=== PATIENT | female | born 1965 | race Caucasian/White ===

== ENCOUNTER 2016-08-09 15:33 | Emergency (ER) | payer MEDICARE, MEDICAID ==
[2016-08-09] MEDS ORDERED: Ondansetron 4 MG/2 ML SDV IVPUSH PRN (15:38)
[2016-08-09] MEDS ORDERED: Sodium Chloride 0.9% 10 ML Syringe FLUSH PRN ×2 (15:38→17:32)
--- NOTE | 2016-08-09 15:44 | EDM.PDOC ---
ED HPI GENERAL MEDICAL PROBLEM - General Chief Complaint: Chest Pain Stated Complaint: [facility] Time Seen by Provider: 08/09/16 15:37 Source of Information: Reports: Patient, EMS, Police, RN Notes Reviewed History Limitations: Reports: No Limitations - History of Present Illness INITIAL COMMENTS - FREE TEXT/NARRATIVE: 50-year-old female presents emergency department day complaint of chest pain, she has been brought in by EMS services. She is currently incarcerated stated she started having some chest pressure last night and it progressively has gotten worse throughout the day she is nauseated she feels short of breath she is diaphoretic. Only significant past medical history is of drug use, does have family history of heart disease denies any diabetes or hypertension or heart disease herself Chest Pain Score (Numeric/FACES): 5 - Related Data Allergies Allergy/AdvReac Type Severity Reaction Status Date / Time bee venom protein (honey bee) Allergy Anaphylactic Verified 08/09/16 15:41 Shock morphine Allergy Facial Verified 08/09/16 15:41 Swelling Home Meds: Home Meds NK [No Known Home Meds] 08/09/16 [History] Past Medical History - Past Health History Medical/Surgical History: Denies Medical/Surgical History Social & Family History - Tobacco Use Smoking Status *Q: Current Some Day Smoker ED ROS GENERAL - Review of Systems Review Of Systems: See Below Constitutional: Reports: Diaphoresis HEENT: Reports: No Symptoms Respiratory: Reports: Shortness of Breath. Denies: Cough, Sputum Cardiovascular: Reports: Chest Pain, Dyspnea on Exertion, Lightheadedness GI/Abdominal: Reports: Mucous in Stool, Nausea. Denies: Abdominal Pain, Vomiting Musculoskeletal: Reports: No Symptoms Skin: Reports: No Symptoms Neurological: Reports: No Symptoms Psychiatric: Reports: No Symptoms ED EXAM, GENERAL - Physical Exam Exam: See Below Exam Limited By: No Limitations General Appearance: Alert, Mild Distress Eye Exam: Bilateral Eye: Normal Inspection Head: Atraumatic, Normocephalic Neck: Normal Inspection, Supple, Non-Tender, Full Range of Motion Respiratory/Chest: No Respiratory Distress, Lungs Clear, Normal Breath Sounds, No Accessory Muscle Use, Chest Non-Tender Cardiovascular: Regular Rate, Rhythm, No Murmur GI/Abdominal: Soft, Non-Tender Extremities: No Pedal Edema Skin Exam: Warm, Dry Course - Vital Signs Last Recorded V/S: Last Vital Signs Temp 98.8 F 06/26/17 15:38 Pulse 62 08/09/16 18:20 Resp 16 08/09/16 15:38 BP 134/82 08/09/16 18:20 Pulse Ox 98 08/09/16 18:20 - Orders/Labs/Meds Orders: Active Orders 24 hr Category Date Time Status Cardiac Monitoring [RC] .As Directed Care 08/09/16 15:38 Active EKG Documentation Completion [RC] ASDIRECTED Care 08/09/16 15:40 Active Chest 1V Frontal [CR] Stat Exams 08/09/16 15:39 Taken Chest w Cont [CT] Stat Exams 08/09/16 17:14 Taken Nitroglycerin/D5W [Nitroglycerin 25 MG/D5W 250 ML] Med 08/09/16 16:00 Active 25 mg in 250 ml IV TITRATE Ondansetron [Zofran] Med 08/09/16 15:38 Active 4 mg IVPUSH ONETIME PRN Sodium Chloride 0.9% [Saline Flush] Med 08/09/16 15:38 Active 10 ml FLUSH ASDIRECTED PRN Sodium Chloride 0.9% [Saline Flush] Med 08/09/16 17:32 Active 10 ml FLUSH ONETIME PRN ED Antiemetic Medication Reflex [OM.PC] Stat Oth 08/09/16 15:38 Ordered Saline Lock Insert [OM.PC] Stat Oth 08/09/16 15:38 Ordered EKG 12 Lead [EK] Stat Ther 08/09/16 15:39 Ordered Medication Orders Nitroglycerin/Dextrose (Nitroglycerin 25 Mg/D5w 250 Ml) 25 mg in 250 mls @ 6 mls/hr IV TITRATE KARMEN; 10 MCG/MIN PRN Reason: Protocol Last Titration: 08/09/16 17:23 Dose: 0 mcg/min, 0 mls/hr Titration: 08/09/16 17:05 Dose: 10 mcg/min, 6 mls/hr Titration: 08/09/16 16:54 Dose: 20 mcg/min, 12 mls/hr Admin: 08/09/16 16:15 Dose: 30 mcg/min, 18 mls/hr Ondansetron HCl (Zofran) 4 mg IVPUSH ONETIME PRN PRN Reason: Nausea/Vomiting Last Admin: 08/09/16 16:04 Dose: 4 mg Sodium Chloride (Saline Flush) 10 ml FLUSH ASDIRECTED PRN PRN Reason: Keep Vein Open Last Admin: 08/09/16 16:12 Dose: 10 ml Sodium Chloride (Saline Flush) 10 ml FLUSH ONETIME PRN PRN Reason: PER RADIOLOGY PROTOCOL Last Admin: 08/09/16 17:44 Dose: 10 ml Labs: Laboratory Tests 08/09/16 08/09/16 08/09/16 Range/Units 15:45 15:45 15:45 WBC 9.9 (4.5-11.0) K/uL RBC 4.57 (3.30-5.50) M/uL Hgb 13.8 (12.0-15.0) g/dL Hct 42.2 (36.0-48.0) % MCV 92 (80-98) fL MCH 30 (27-31) pg MCHC 33 (32-36) % Plt Count 274 (150-400) K/uL Neut % (Auto) 60 (36-66) % Lymph % (Auto) 28 (24-44) % Hudson % (Auto) 10 H (2-6) % Eos % (Auto) 2 (2-4) % Baso % (Auto) 1 (0-1) % D-Dimer, Quantitative < 100 (0.0-400.0) ng/mL Sodium 132 L (140-148) mmol/L Potassium 3.7 (3.6-5.2) mmol/L Chloride 98 L (100-108) mmol/L Carbon Dioxide 33 H (21-32) mmol/L Anion Gap 4.7 L (5.0-14.0) mmol/L BUN 15 (7-18) mg/dL Creatinine 0.8 (0.6-1.0) mg/dL Est Cr Clr Drug Dosing 71.43 mL/min Estimated GFR (MDRD) > 60 (>60) Glucose 93 (74-106) mg/dL Calcium 8.8 (8.5-10.1) mg/dL Total Bilirubin 0.3 (0.2-1.0) mg/dL AST 9 L (15-37) U/L ALT 15 (12-78) U/L Alkaline Phosphatase 59 (46-116) U/L Troponin I < 0.017 (0.000-0.056) ng/mL Total Protein 6.7 (6.4-8.2) g/dL Albumin 3.4 (3.4-5.0) g/dL Globulin 3.3 (2.3-3.5) g/dL Albumin/Globulin Ratio 1.0 L (1.2-2.2) Lipase 242 (73-393) U/L Urine Color Urine Appearance Urine pH (4.5-8.0) Ur Specific Baldwin (1.008-1.030) Urine Protein (NEGATIVE) mg/dL Urine Glucose (UA) (NEGATIVE) mg/dL Urine Ketones (NEGATIVE) mg/dL Urine Occult Blood (NEGATIVE) Urine Nitrite (NEGATIVE) Urine Bilirubin (NEGATIVE) Urine Urobilinogen (NORMAL) mg/dL Ur Leukocyte Esterase (NEGATIVE) Urine RBC (0-5) Urine WBC (0-5) Ur Epithelial Cells Amorphous Sediment Urine Bacteria Urine Mucus Urine Opiates Screen (NEGATIVE) Ur Oxycodone Screen (NEGATIVE) Urine Methadone Screen (NEGATIVE) Ur Propoxyphene Screen (NEGATIVE) Ur Barbiturates Screen (NEGATIVE) Ur Tricyclics Screen (NEGATIVE) Ur Phencyclidine Scrn (NEGATIVE) Ur Amphetamine Screen (NEGATIVE) U Methamphetamines Scrn (NEGATIVE) Urine MDMA Screen (NEGATIVE) U Benzodiazepines Scrn (NEGATIVE) U Cocaine Metab Screen (NEGATIVE) U Marijuana (THC) Screen (NEGATIVE) 08/09/16 08/09/16 Range/Units 17:07 17:07 WBC (4.5-11.0) K/uL RBC (3.30-5.50) M/uL Hgb (12.0-15.0) g/dL Hct (36.0-48.0) % MCV (80-98) fL MCH (27-31) pg MCHC (32-36) % Plt Count (150-400) K/uL Neut % (Auto) (36-66) % Lymph % (Auto) (24-44) % Hudson % (Auto) (2-6) % Eos % (Auto) (2-4) % Baso % (Auto) (0-1) % D-Dimer, Quantitative (0.0-400.0) ng/mL Sodium (140-148) mmol/L Potassium (3.6-5.2) mmol/L Chloride (100-108) mmol/L Carbon Dioxide (21-32) mmol/L Anion Gap (5.0-14.0) mmol/L BUN (7-18) mg/dL Creatinine (0.6-1.0) mg/dL Est Cr Clr Drug Dosing mL/min Estimated GFR (MDRD) (>60) Glucose (74-106) mg/dL Calcium (8.5-10.1) mg/dL Total Bilirubin (0.2-1.0) mg/dL AST (15-37) U/L ALT (12-78) U/L Alkaline Phosphatase (46-116) U/L Troponin I (0.000-0.056) ng/mL Total Protein (6.4-8.2) g/dL Albumin (3.4-5.0) g/dL Globulin (2.3-3.5) g/dL Albumin/Globulin Ratio (1.2-2.2) Lipase (73-393) U/L Urine Color Yellow Urine Appearance Cloudy Urine pH 8.0 (4.5-8.0) Ur Specific Baldwin 1.015 (1.008-1.030) Urine Protein Negative (NEGATIVE) mg/dL Urine Glucose (UA) Normal (NEGATIVE) mg/dL Urine Ketones Negative (NEGATIVE) mg/dL Urine Occult Blood Negative (NEGATIVE) Urine Nitrite Positive H (NEGATIVE) Urine Bilirubin Negative (NEGATIVE) Urine Urobilinogen Normal (NORMAL) mg/dL Ur Leukocyte Esterase Negative (NEGATIVE) Urine RBC 0-5 (0-5) Urine WBC 0-5 (0-5) Ur Epithelial Cells Not seen Amorphous Sediment Rare Urine Bacteria Moderate Urine Mucus Not seen Urine Opiates Screen Negative (NEGATIVE) Ur Oxycodone Screen Negative (NEGATIVE) Urine Methadone Screen Negative (NEGATIVE) Ur Propoxyphene Screen Negative (NEGATIVE) Ur Barbiturates Screen Negative (NEGATIVE) Ur Tricyclics Screen Negative (NEGATIVE) Ur Phencyclidine Scrn Negative (NEGATIVE) Ur Amphetamine Screen Negative (NEGATIVE) U Methamphetamines Scrn Negative (NEGATIVE) Urine MDMA Screen Negative (NEGATIVE) U Benzodiazepines Scrn Negative (NEGATIVE) U Cocaine Metab Screen Negative (NEGATIVE) U Marijuana (THC) Screen Negative (NEGATIVE) Meds: Medications Generic Name Dose Route Start Last Admin Trade Name Freq PRN Reason Stop Dose Admin Nitroglycerin/Dextrose 25 mg in 250 mls @ 6 mls/hr 08/09/16 16:00 08/09/16 17 :23 Nitroglycerin 25 Mg/D5w 250 Ml IV 0 mcg/min TITRATE KARMEN 0 mls/hr Protocol Titration 10 MCG/MIN Ondansetron HCl 4 mg 08/09/16 15:38 08/09/16 16:04 Zofran IVPUSH 4 mg ONETIME PRN Administration Nausea/Vomiting Sodium Chloride 10 ml 08/09/16 15:38 08/09/16 16:12 Saline Flush FLUSH 10 ml ASDIRECTED PRN Administration Keep Vein Open Sodium Chloride 10 ml 08/09/16 17:32 08/09/16 17:44 Saline Flush FLUSH 10 ml ONETIME PRN Administration PER RADIOLOGY PROTOCOL Discontinued Medications Generic Name Dose Route Start Last Admin Trade Name Freq PRN Reason Stop Dose Admin Hydromorphone HCl 1 mg 08/09/16 15:57 08/09/16 16:08 Dilaudid IVPUSH 08/09/16 15:58 1 mg ONETIME ONE Administration Sodium Chloride 75 mls @ 3 mls/sec 08/09/16 17:32 08/09/16 17:44 Normal Saline IV 08/09/16 17:33 3 mls/sec ONETIME ONE Administration Iopamidol 100 ml 08/09/16 17:32 08/09/16 17:44 Isovue-300 (61%) IV 08/09/16 17:33 100 ml . DIRECTED PRN Administration RADIOLOGY EXAM Departure - Departure Time of Disposition: 18:29 Disposition: Home, Self-Care 01 Condition: Good Clinical Impression: Atypical chest pain Forms: ED Department Discharge Additional Instructions: use ibuprofen or Tylenol as needed for pain control, please follow-up with your primary care provider upon release from incarceration - My Orders Last 24 Hours: My Active Orders 08/09/16 15:38 Cardiac Monitoring [RC] .As Directed Ondansetron [Zofran] 4 mg IVPUSH ONETIME PRN Sodium Chloride 0.9% [Saline Flush] 10 ml FLUSH ASDIRECTED PRN ED Antiemetic Medication Reflex [OM.PC] Stat Saline Lock Insert [OM.PC] Stat 08/09/16 15:39 Chest 1V Frontal [CR] Stat EKG 12 Lead [EK] Stat 08/09/16 15:40 EKG Documentation Completion [RC] ASDIRECTED 08/09/16 16:00 Nitroglycerin/D5W [Nitroglycerin 25 MG/D5W 250 ML] 25 mg in 250 ml IV TITRATE 08/09/16 17:14 Chest w Cont [CT] Stat 08/09/16 17:32 Sodium Chloride 0.9% [Saline Flush] 10 ml FLUSH ONETIME PRN - Assessment/Plan Last 24 Hours: My Active Orders 08/09/16 15:38 Cardiac Monitoring [RC] .As Directed Ondansetron [Zofran] 4 mg IVPUSH ONETIME PRN Sodium Chloride 0.9% [Saline Flush] 10 ml FLUSH ASDIRECTED PRN ED Antiemetic Medication Reflex [OM.PC] Stat Saline Lock Insert [OM.PC] Stat 08/09/16 15:39 Chest 1V Frontal [CR] Stat EKG 12 Lead [EK] Stat 08/09/16 15:40 EKG Documentation Completion [RC] ASDIRECTED 08/09/16 16:00 Nitroglycerin/D5W [Nitroglycerin 25 MG/D5W 250 ML] 25 mg in 250 ml IV TITRATE 08/09/16 17:14 Chest w Cont [CT] Stat 08/09/16 17:32 Sodium Chloride 0.9% [Saline Flush] 10 ml FLUSH ONETIME PRN Plan: Assessment Acuity = acute Site and laterality = chest pain Etiology = unclear etiology Manifestations = none Location of injury = home Lab values = CBC within normal limits, d-dimer is negative, troponin negative sodium low 132 consistent hyponatremia, EKG demonstrates a sinus rhythm no ST changes CT of the chest was negative except for a 6 cm cyst on the right superior pole of the kidney Plan I did review lab work EKG CT scan results with her she is chest pain-free at this time blood pressure has returned to normal, she will be returned to incarceration use Tylenol or ibuprofen as needed follow-up with primary care upon discharge Patient was in agreement with the plan all questions were answered, they were instructed to return to the emergency department or call for worsening symptoms. This note was dictated using [employer]aze[employer] voice recognition software please call with any questions.
[2016-08-09] MEDS ORDERED: HYDROmorphone 1 MG/ML Syringe IVPUSH ONE (15:57)
[2016-08-09] MEDS ORDERED: Nitroglycerin/D5W 25 MG/250 ML BOTTLE IV SCH (16:00)
[2016-08-09] MEDS ORDERED: Sodium Chloride 0.9% 75 ML IV ONE (17:32)
[2016-08-09] MEDS ORDERED: Iopamidol 612 MG/ML 100 ML Bottle IV PRN (17:32)
[2016-08-09 18:24] VITALS: BP 134/82
--- NOTE | 2016-08-10 09:30 | CR ---
Chest 1V Frontal HISTORY: No Clinical Info COMPARISON: Chest pain. FINDINGS: Bilateral nipple shadows. The cardiac size and pulmonary vessels are normal. No focal infi ltrates or effusions are no pneumothorax. Impression: No acute pulmonary disease.
== END 2016-08-09 19:40 | disposition home or self-care (01) ==
LOC: JP.ED 15:33
DX: R07.89 Other chest pain (principal); F17.200 Nicotine dependence, unspecified, uncomplicated; Z88.5 Allergy status to narcotic agent; Z91.030 Bee allergy status
CPT/HCPCS: 36415; 71010; 71260; 80053; 80305; 81001; 83690; 84484; 85025; 85379; 93005; 93010; 96374; 96375; 99284; 99285; J1170; J2405; J7030; J7050; Q9967